=== PATIENT | male | born 1965 | race Caucasian/White ===

== ENCOUNTER → 2020-07-18 09:58 | Outpatient (BNVA) | payer BC, SELFPAY | PROVIDERS: PCP Internal Medicine; Visit Provider Anesthesiology | DX: Z76.89 Persons encountering health services in other specified circumstances (principal) ==

== ENCOUNTER 2025-04-14 14:03 | Outpatient (AMB) | payer OTHER, SELFPAY ==
[2025-04-14 14:25] VITALS: BP 122/84; PULSE 101; O2SAT 97; BMI 26.6
--- NOTE | 2025-04-14 14:25 | A.OFFVIS_ITS ---
Vital Signs 04/14/25 14:25 Height 6 ft Weight 196 lb 3.382 oz BMI 26.6 BP 122/84 Blood Pressure Location Lt brachial Position Sitting Pulse 101 H Pulse Source Pulse Oximeter Pulse Oximetry (%) 97 Oxygen Delivery Method Room Air Intake Visit Reasons: Obstructive sleep apnea Intake Note: pt is here as a new patient for delmy work up , had sleep test in 2022 was told no sleep apnea, and no other contact from MD. He does state that when mowing the lawn he has to stop and rest, short of breath with exertion, both coughing and wheezing, fatigue thorughout the day, snoring, gasping for air at night witnessed. all this past 3-4 years. Supervisor Education Required: No Allergies albuterol (From ProAir HFA) Allergy (Severe, Verified 04/14/25 15:01) throat swelling - from the propellant, not the albuterol Medication List - Last Reconciled 04/14/25 by Migdalia Sharma MD aspirin 81 mg PO DAILY atorvastatin (Lipitor) 20 mg PO DAILY cetirizine (Allergy Relief (cetirizine)) 10 mg PO DAILY PRN cholecalciferol (vitamin D3) 50 mcg PO DAILY diclofenac sodium 1% 2 grams topical QID dicyclomine 10 mg PO BID esomeprazole magnesium 40 mg PO DAILY etodolac 500 mg PO BID lansoprazole (Prevacid) 15 mg PO DAILY loratadine 10 mg PO DAILY metoprolol succinate ER 50 mg PO DAILY Do you need a note to return to daycare/school/sports/work: No HPI HPI Obstructive sleep apnea: Details: 59 years old gentleman is being seen for the 1st time with his chief complaint of difficulty, in sleeping at night And also recently he has started experiencing shortness of breath on doing usual routine physical work in the afternoons. 1- he has history of difficulty in falling asleep and then waking up during his sleep with long respiratory pauses, is started about 4 years ago. He felt that he was not getting good sleep. Finally he had a home-based sleep study in 2022. It was positive for severe obstructive sleep apnea worse in the supine position. However he states that this result was not conveyed to him and he was actually under the impression that he did not have sleep apnea. He comes here today again complaining that he does not get good sleep at night. There is definitely delayed sleep onset, and according to his. Girlfriend he does snore at night He wakes up a few times from the sleep with gasping like feeling. He does remained tired and somewhat sleepy during the daytime. As far as his weight is concerned that has not gone up And he is not overly obese. 2- as far as shortness of breath on exertion is concerned, he is retired, he goes outdoors for normal activities. Sometime in the afternoon he does work like mowing his. Lawn or any physical work at home He he has noticed that he gets short of breath more easily than before, sometime he has to stop to rest after working for 15-20 minutes. However he has no history of smoking. He does not cough, and does not have any wheezing episodes. He has thinks that he may have had breathing test at [facility] a few years ago, but we do not have any report available. WE DID A SPIROMETRY IN THE OFFICE WHICH SHOWS PATTERN OF MILD OBSTRUCTIVE AIRWAY DISORDER. When I discussed with him these findings, now he starts telling me that he always has had some trouble in breathing and he has been prescribed albuterol since his younger age when he was in school. He also tells me that he does not tolerate the albuterol spray , other preparations have been tried and he reacts. * he has been told that he is probably allergic to the propellent part of the inhaler and not the albuterol sulfate itself. [facility] Medical History Retrognathia DELMY (obstructive sleep apnea) Asthma with COPD Osteoarthritis of shoulders, bilateral Generalized osteoarthritis Social History Patient Tobacco Use Status: Never used Tobacco Review of Systems Const All systems reviewed & are unremarkable except as noted in HPI and below Eyes Reports no additional complaints ENT Denies nasal congestion and Denies nasal discharge Card Denies chest pain, Denies syncope and Denies irregular heart rhythm Resp Reports as per HPI GI Reports heartburn (He has symptoms of GERD due to hiatal hernia) Reports no additional complaints Musc Reports no additional complaints Skin/Breast Reports system reviewed and no additional complaints, except as documented Neuro Reports no additional complaints and Denies syncope Psych Reports no additional complaints Endo Reports no additional complaints Indio/Lymph Reports no additional complaints Aller/Immun Reports no additional complaints Physical Exam Vital Signs: Last Vital Signs Pulse 101 H 04/14/25 14:25 BP 122/84 04/14/25 14:25 Pulse Ox 97 04/14/25 14:25 Oxygen Delivery Method Room Air 04/14/25 14:25 BMI result Body Mass Index 26.6 Const General: healthy appearing, comfortable, no acute distress, alert and awake Orientation/consciousness: patient oriented x3 HEENT Head: Yes normal to inspection General nose exam: No nasal polyps present and No nasal discharge present Face and sinus: Yes sinuses nontender Mouth: oropharynx abnormals (The tongue is placed back, Rafal pharynx is narrow and crowded . Mallampat) Teeth and gingiva: other (Patient does have prominent retrognathia of the lower jaw.) Throat: Yes posterior oropharynx normal Eyes General: appearance normal, both eyes and all related structures Neck Neck: Yes normal visual inspection, Yes no lymphadenopathy, Yes trachea midline, Yes no JVD and Yes other (Neck circumference 16-1/2 inch) Thyroid: Thyroid normal Chest Chest palpation & inspection: normal inspection of the chest, normal palpation of entire chest wall and no tenderness Resp Effort & Inspection: normal respiratory effort Auscultation: no crackles, no rhonchi and no wheezes Cardio Palpation: normal PMI Rate: regular rate Rhythm: regular rhythm Heart sounds: no gallops and no murmurs Peripheral pulses: Peripheral pulses 2+ throughout GI Palpation (GI): Soft to palpation, nontender, No hepatosplenomegaly present and no masses Auscultation: normal bowel sounds Back/Spine/Pelvis Thoracic/Lumbar Spine: thoracic and lumbar spine normal to inspection Skin General skin exam: no rashes or lesions noted Neuro General: patient oriented x3 and no focal motor deficits Cranial nerves: Yes CN's II-XII intact bilaterally Extrem General: Yes normal to inspection, Yes no clubbing, cyanosis or edema and Yes no calf tenderness Psych Appearance: grossly normal and well kempt Speech and movement: Normal speech and movement present Office Procedures Spirometry Testing Spirometry Comments: spirometry done, [place]. effort [address]15- Spirometry Results Reviewed Results Reviewed: Sleep study at [facility] on 04/10/2023 showed obstructive sleep apnea very severe in supine position and moderately severe in non supine position. He also had minimal degree of nocturnal hypoxemia. Spirometry performed in the office today is consistent with mild obstructive airway disorder. Assessment & Plan Assessment & Plan (1) Asthma with COPD: Comment: As per spirometry he has a mild degree of obstructive airway disorder. Most likely it is part of his chronic bronchial asthma. Code(s): J44.89 - Other specified chronic obstructive pulmonary disease Category: Medical Plan: It is mild and symptomatically he does not complain of any cough or wheezing, except some shortness of breath on exertion. Because he has questionable history of allergy to albuterol., I told him that he does not have to use any PRN bronchodilator at this time. In future we would like to do complete pulmonary function test and also give him a bronchodilator challenge in the office. (2) DELMY (obstructive sleep apnea): Comment: He has significant degree of retrognathia , which is the main cause of his sleep apnea. His previous study in 2022 showed definite moderate to severe sleep apnea. Due to some miscommunication he has not been started on the CPAP therapy. Code(s): G47.33 - Obstructive sleep apnea (adult) (pediatric) Category: Medical Plan: I told him that now we have to do another sleep study. We can do home-based sleep study to confirm the diagnosis of sleep apnea and then start him on treatment. (3) Retrognathia: Comment: He has significant degree of retrognathia of the lower jaw, and chin regression. This seems to be the main cause of his sleep apnea. Code(s): M26.19 - Other specified anomalies of jaw-cranial base relationship Category: Medical Plan: This was just to explained to him. Weight reduction is not expected to overcome his sleep apnea. Orders: Orders AMB Spirometry Testing Today Prisca Ramirez, RT G47.33 - Obstructive sleep apnea (adult) (pediatric) RT home sleep study Today Migdalia Sharma MD M26.19 - Other specified anomalies of jaw-cranial base relationship, R06.83 - Snoring, R40.0 - Somnolence Coding Level of Care Code New Pt Level 4 (67329) Diagnoses Asthma with COPD J44.89 DELMY (obstructive sleep apnea) G47.33 Retrognathia M26.19 CPT Codes Spirometry - CPT: 43251- Spirometry ([id number])
== END 2025-04-14 15:24 | disposition home or self-care (01) ==
LOC: HO.HPS 14:03
PROVIDERS: PCP Internal Medicine; Visit Provider Internal Medicine
DX: J44.89 Other specified chronic obstructive pulmonary disease (principal); G47.33 Obstructive sleep apnea (adult) (pediatric); M26.19 Other specified anomalies of jaw-cranial base relationship
CPT/HCPCS: 94010; 99204

== ENCOUNTER → 2025-04-14 14:03 | Outpatient (BNVA) | payer OTHER, SELFPAY | PROVIDERS: PCP Internal Medicine; Visit Provider Internal Medicine | DX: J44.89 Other specified chronic obstructive pulmonary disease (principal); G47.33 Obstructive sleep apnea (adult) (pediatric); M26.19 Other specified anomalies of jaw-cranial base relationship | CPT/HCPCS: 94010; 99202 ==